=== PATIENT | male | born 1940 | race Caucasian/White ===

== ENCOUNTER 2021-06-18 14:08 | Emergency (ER) | payer MEDICARE, BC ==
[2021-06-18 14:56] LABS: CHLORIDE,CL 98 mEq/L (98-106); SODIUM,NA 133 mEq/L (136-145)
--- NOTE | 2021-06-18 15:00 | EDM.PDOC ---
ED HPI GENERAL MEDICAL PROBLEM - General Chief Complaint: General Stated Complaint: double vision Time Seen by Provider: 06/18/21 14:20 Source of Information: Reports: Patient, Family () History Limitations: Reports: No Limitations - History of Present Illness INITIAL COMMENTS - FREE TEXT/NARRATIVE: States that he is seeing double if he looks at the wall and when they were coming to [place] he would see 2 cars. If he is reading a paper he is able to read it without it being double but sometimes he states that it shifts up and down and then will come back together. He states that the double vision he has when looking at the wall will eventually come back together into 1 vision. He is able to correct the double vision by closing one eye or the other. He has no ptosis and EOM are normal bilaterally. INH stroke score when admitted is 0. Onset: Today Associated Symptoms: Reports: No Other Symptoms. Denies: Headaches Right Wrist Pain Score (Numeric/FACES): 4 - Related Data Allergies Allergy/AdvReac Type Severity Reaction Status Date / Time meloxicam Allergy Shortness Verified 06/21/21 13:16 of Breath tetracycline [Tetracycline] AdvReac Mild Blisters Verified 06/21/21 13:16 Home Meds: Home Meds Ascorbate Calcium [Vitamin C] 500 mg PO DAILY 05/06/17 [History] Cholecalciferol (Vitamin D3) [Vitamin D3] 5,000 unit PO 1200 05/06/17 [History] Magnesium 250 mg PO DAILY 05/06/17 [History] Multivitamin [Multivitamins] 1 each PO DAILY 05/06/17 [History] Pregabalin [Lyrica] 75 mg PO TID 05/06/17 [History] Sennosides [Senokot] 25.8 mg PO TID 05/06/17 [History] traMADol [Ultram] 50 mg PO Q8H PRN 05/06/17 [History] Losartan/Hydrochlorothiazide [Losartan-HCTZ 100-25 MG] 100 mg PO DAILY 05/15/18 [History] Diclofenac Sodium [Voltaren] 1 applic TOP ASDIRECTED PRN 06/26/18 [History] predniSONE [Prednisone] 5 mg PO DAILY 05/11/19 [History] Folic Acid 0.4 mg PO DAILY 08/03/19 [History] Calcium Carbonate [Calcium] 600 mg PO BID 06/12/20 [History] Fluticasone Propionate [Flonase] 2 sprays INH BEDTIME 06/12/20 [History] riTUXimab [Rituxan] 1 infusion IV Q6M 06/18/21 [History] Aspirin 81 mg PO DAILY 06/21/21 [History] Rosuvastatin [Crestor] 10 mg PO DAILY 06/21/21 [History] Past Medical History - History Comment History Comment: please see RN notes for past medical, surgical, family history Social & Family History - Tobacco Use Tobacco Use Status *Q: Former Tobacco User Used Tobacco, but Quit: Yes Month/Year Tobacco Last Used: 41 y.o - Caffeine Use Caffeine Use: Reports: Coffee - Recreational Drug Use Recreational Drug Use: No - Living Situation & Occupation Living situation: Reports: , with Spouse Occupation: Retired ED ROS GENERAL - Review of Systems Review Of Systems: See Below Constitutional: Denies: Fever, Chills HEENT: Reports: Vision Change (sees doubles. ) Respiratory: Reports: No Symptoms Cardiovascular: Reports: No Symptoms GI/Abdominal: Reports: No Symptoms Skin: Reports: No Symptoms Neurological: Denies: Dizziness, Headache, Numbness, Syncope, Trouble Speaking, Difficulty Walking, Weakness, Change in Speech, Gait Disturbance Psychiatric: Reports: No Symptoms ED EXAM, GENERAL - Physical Exam Exam: See Below Exam Limited By: No Limitations General Appearance: Alert, WD/WN, No Apparent Distress, Other (very talkative) Eye Exam: Bilateral Eye: Other Ears: Normal External Exam, Normal Canal Nose: Normal Inspection Throat/Mouth: Normal Inspection, Normal Oropharynx Head: Atraumatic, Normocephalic Neck: Normal Inspection, Supple, Non-Tender, Full Range of Motion. No: Carotid Bruit Respiratory/Chest: No Respiratory Distress, Lungs Clear, Normal Breath Sounds Cardiovascular: Regular Rate, Rhythm, No Edema GI/Abdominal: Normal Bowel Sounds, Soft, Non-Tender Extremities: Normal Inspection, Normal Capillary Refill Neurological: Alert, Oriented, CN II-XII Intact Skin Exam: Warm, Dry Course - Vital Signs Last Recorded V/S: Last Vital Signs Temp 98.1 F 06/18/21 14:08 Pulse 64 06/18/21 14:08 Resp 18 06/18/21 14:08 BP 154/92 H 06/18/21 14:08 Pulse Ox 96 06/18/21 14:08 - Orders/Labs/Meds Labs: Laboratory Tests 06/18/21 06/18/21 06/18/21 Range/Units 14:18 14:43 14:43 WBC 9.0 (4.0-11.0) 10^3/uL RBC 4.74 (4.50-6.00) x10^6/uL Hgb 14.4 (14.0-18.0) g/dL Hct 42.3 (42.0-52.0) % MCV 89.2 (83.0-97.0) fL MCH 30.4 (27.0-32.0) pg MCHC 34.0 (32.0-36.0) g/dL RDW Coeff of Patrick 14.0 (11.0-15.0) % Plt Count 249 (150-400) 10^3/uL Immature Gran % (Auto) 0.8 (0.0-4.9) % Neut % (Auto) 52.5 (41-71) % Lymph % (Auto) 28.7 (24-44) % [place] % (Auto) 16.0 H (0-10) % Eos % (Auto) 1.8 (0-6) % Baso % (Auto) 0.2 (0-1) % Neut # (Auto) 4.72 (1.80-8.00) x10^3/uL Lymph # (Auto) 2.58 (0.60-5.00) 10^3/uL [place] # (Auto) 1.44 (0.00-1.50) 10^3/uL Eos # (Auto) 0.16 (0.00-1.50) 10^3/uL Baso # (Auto) 0.02 (0.00-0.50) 10^3/uL Immature Gran # (Auto) 0.07 (0.00-0.49) 10^3/uL PT 11.0 (9.7-12.3) SEC INR 1.01 (0.92-1.18) Sodium 133 L (136-145) mEq/L Potassium 3.8 (3.5-5.0) mEq/L Chloride 98 (98-106) mEq/L Carbon Dioxide 31 (21-32) mmol/L BUN 16 (7-18) mg/dL Creatinine 0.8 (0.7-1.3) mg/dL Est Cr Clr Drug Dosing 82.18 mL/min Estimated GFR (MDRD) > 60 (>=60) mL/min Glucose 104 H (75-99) mg/dL Calcium 8.2 L (8.4-10.1) mg/dL Lactate Dehydrogenase 233 H (100-190) U/L Creatine Kinase 110 (35-232) U/L Troponin I < 0.017 (0.00-0.06) ng/mL Urine Color (YELLOW) Urine Appearance (CLEAR) Urine pH (4.5-8.0) Ur Specific [place] (1.003-1.020) Urine Protein (NEGATIVE) mg/dL Urine Glucose (UA) (NEGATIVE) mg/dL Urine Ketones (NEGATIVE) mg/dL Urine Occult Blood (NEGATIVE) Urine Nitrite (NEGATIVE) Urine Bilirubin (NEGATIVE) Urine Urobilinogen (0.2-1.0) EU/dL Ur Leukocyte Esterase (NEGATIVE) 06/18/21 Range/Units 14:43 WBC (4.0-11.0) 10^3/uL RBC (4.50-6.00) x10^6/uL Hgb (14.0-18.0) g/dL Hct (42.0-52.0) % MCV (83.0-97.0) fL MCH (27.0-32.0) pg MCHC (32.0-36.0) g/dL RDW Coeff of Patrick (11.0-15.0) % Plt Count (150-400) 10^3/uL Immature Gran % (Auto) (0.0-4.9) % Neut % (Auto) (41-71) % Lymph % (Auto) (24-44) % [place] % (Auto) (0-10) % Eos % (Auto) (0-6) % Baso % (Auto) (0-1) % Neut # (Auto) (1.80-8.00) x10^3/uL Lymph # (Auto) (0.60-5.00) 10^3/uL [place] # (Auto) (0.00-1.50) 10^3/uL Eos # (Auto) (0.00-1.50) 10^3/uL Baso # (Auto) (0.00-0.50) 10^3/uL Immature Gran # (Auto) (0.00-0.49) 10^3/uL PT (9.7-12.3) SEC INR (0.92-1.18) Sodium (136-145) mEq/L Potassium (3.5-5.0) mEq/L Chloride (98-106) mEq/L Carbon Dioxide (21-32) mmol/L BUN (7-18) mg/dL Creatinine (0.7-1.3) mg/dL Est Cr Clr Drug Dosing mL/min Estimated GFR (MDRD) (>=60) mL/min Glucose (75-99) mg/dL Calcium (8.4-10.1) mg/dL Lactate Dehydrogenase (100-190) U/L Creatine Kinase (35-232) U/L Troponin I (0.00-0.06) ng/mL Urine Color Yellow (YELLOW) Urine Appearance Clear (CLEAR) Urine pH 6.0 (4.5-8.0) Ur Specific [place] 1.020 (1.003-1.020) Urine Protein Negative (NEGATIVE) mg/dL Urine Glucose (UA) Negative (NEGATIVE) mg/dL Urine Ketones Negative (NEGATIVE) mg/dL Urine Occult Blood Negative (NEGATIVE) Urine Nitrite Negative (NEGATIVE) Urine Bilirubin Negative (NEGATIVE) Urine Urobilinogen 0.2 (0.2-1.0) EU/dL Ur Leukocyte Esterase Negative (NEGATIVE) - Re-Assessments/Exams Free Text/Narrative Re-Assessment/Exam: 06/18/21 1531 Per one call I Discussed pt and CT report with Dr. Cristobal Little neurologist at [facility] per pt request. He MRI today which we can not do. He then recommended transfer to [facility] to have it accomplished there. I was then transferred to Dr. Howard, ER physician who felt that if there was a concern for a stroke I should talk to the stroke neurologist. about it. I was then transferred to Dr. Andrade the interventional stroke neurologist and he reviewed the CT and recommended that he has MRI tomorrow, see opthamolgist early next week depending on the results of the MRI, start a baby ASA daily and start crestor 10 mg daily. If MRI abnormal then would need to see him also. 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 He should also patch [address] Pt and are both in agreement with the above plan. Instructed that if symptoms change then he needs to return immediately. Departure - Departure Time of Disposition: 16:07 Disposition: Home, Self-Care 01 Condition: Fair Clinical Impression: Diplopia - Discharge Information *PRESCRIPTION DRUG MONITORING PROGRAM REVIEWED*: Not Applicable *COPY OF PRESCRIPTION DRUG MONITORING REPORT IN PATIENT KIMBER: Not Applicable Referrals: Chivo Ramos MD [Primary Care Provider] - Forms: ED Department Discharge Additional Instructions: MRI tomorrow in [place] wear patch on one eye or your glasses to stop the double vision will need to see ophthalmology pending the results of the MRI- This will be arranged after MRI. Do not drive. Start baby ASA 81 mg daily start crestor 10 mg daily for stroke prevention. Sepsis Event Note (ED) - Evaluation Sepsis Screening Result: No Definite Risk - Problem List & Annotations (1) Double vision with both eyes open SNOMED Code(s): 725752691 Code(s): H53.2 - DIPLOPIA Status: Acute Priority: High - Problem List Review Problem List Initiated/Reviewed/Updated: Yes
== END 2021-06-18 16:30 | disposition home or self-care (01) ==
LOC: CC.ED 14:08
DX: H53.2 Diplopia (principal); Z87.891 Personal history of nicotine dependence; Z79.899 Other long term (current) drug therapy; Z79.82 Long term (current) use of aspirin; Z88.1 Allergy status to other antibiotic agents; Z88.6 Allergy status to analgesic agent
CPT/HCPCS: 36415; 70450; 71046; 80048; 81003; 82550; 83615; 84484; 85025; 85610; 93005; 93010; 99284; 99285-25

== ENCOUNTER 2021-06-21 13:11 | Inpatient (IN) | payer MEDICARE, BC ==
[2021-06-21] MEDS ORDERED: Acetaminophen 500 MG Tab PO ONE (13:25)
--- NOTE | 2021-06-21 13:29 | EDM.PDOC ---
ED HPI GENERAL MEDICAL PROBLEM - General Chief Complaint: General Stated Complaint: hands shaking this AM Time Seen by Provider: 06/21/21 13:22 Source of Information: Reports: Patient, Significant Other () History Limitations: Reports: No Limitations - History of Present Illness INITIAL COMMENTS - FREE TEXT/NARRATIVE: This patent is a 80 year old male that presents to the ER. Patient reports that he woke this morning, did not drink coffee like he normally does. He reports he and his went to [facility] to eat lunch. Patient reports that on the way to [facility] he was shaking while driving. He reports that while he was there he was shaking all over. Patient reports that his encouraged him to go to the hospital for his shaking. Patient reports that the regional maintenance manager at [facility] wanted to call an ambulance for him to go to the ER, but patient refused. Patient reports he wanted to drive to [place] to go to the ER. His drove to [place] ER from [place] with patient in passenger seat shaking. Patient reports that his shaking stopped about 20 minutes before arrival. The patient reports that earlier today he was having some right sided c hest pain and shortness of breath. Patient reports that he has had this pain in his chest on and off for 6 months. He reports this chest pain is not new. He reports in the ER he has no chest pain or shortness of breath. He reports nothing makes it worse or better. Patient keeps reporting the shaking is because he did not get his caffeine today. He keeps reporting he is no longer shaking because he got coffee to go from [facility]. The patient and report the patient on had double vision, was seen for this. The report patient was supposed to see neurologist for this double vision, but he ended up getting an MRI yesterday that was normal, so they cancelled neurology appointment. He is now scheduled to see tax services specialist tomorrow for double vision. Patient reports he has not had double vision since , none today. Onset: Today Onset Date: 06/21/21 Onset Time: 11:00 Duration: Hour(s): (2 11/22) Location: Reports: Upper Extremity, Left, Upper Extremity, Right Severity: Mild Improves with: Reports: Other ("shaking gone, because I drank coffee") Worsens with: Reports: None Associated Symptoms: Reports: Chest Pain ("6 months" " on and off"), Shortness of Breath, Other (shakes). Denies: Confusion, Cough, cough w sputum, Diaphoresis, Fever/Chills, Headaches, Loss of Appetite, Malaise, Nausea/Vomiting, Rash, Seizure, Syncope, Weakness - Related Data Allergies Allergy/AdvReac Type Severity Reaction Status Date / Time meloxicam Allergy Shortness Verified 06/21/21 13:16 of Breath tetracycline [Tetracycline] AdvReac Mild Blisters Verified 06/21/21 13:16 Home Meds: Home Meds Ascorbate Calcium [Vitamin C] 500 mg PO DAILY 05/06/17 [History] Cholecalciferol (Vitamin D3) [Vitamin D3] 5,000 unit PO 1200 05/06/17 [History] Magnesium 250 mg PO DAILY 05/06/17 [History] Multivitamin [Multivitamins] 1 each PO DAILY 05/06/17 [History] Pregabalin [Lyrica] 75 mg PO TID 05/06/17 [History] Sennosides [Senokot] 25.8 mg PO TID 05/06/17 [History] traMADol [Ultram] 50 mg PO Q8H PRN 05/06/17 [History] Losartan/Hydrochlorothiazide [Losartan-HCTZ 100-25 MG] 100 mg PO DAILY 05/15/18 [History] Diclofenac Sodium [Voltaren] 1 applic TOP ASDIRECTED PRN 06/26/18 [History] predniSONE [Prednisone] 5 mg PO DAILY 05/11/19 [History] Folic Acid 0.4 mg PO DAILY 08/03/19 [History] Calcium Carbonate [Calcium] 600 mg PO BID 06/12/20 [History] Fluticasone Propionate [Flonase] 2 sprays INH BEDTIME 06/12/20 [History] riTUXimab [Rituxan] 1 infusion IV Q6M 06/18/21 [History] Aspirin 81 mg PO DAILY 06/21/21 [History] Rosuvastatin [Crestor] 10 mg PO DAILY 06/21/21 [History] Past Medical History HEENT History: Reports: Cataract, Glaucoma, Impaired Vision Cardiovascular History: Reports: Hypertension Musculoskeletal History: Reports: Osteoarthritis, RA Endocrine/Metabolic History: Reports: Obesity/BMI 30+ - Past Surgical History HEENT Surgical History: Reports: Adenoidectomy, Cataract Surgery, Tonsillectomy, Other (See Below) Other HEENT Surgeries/Procedures: "put plastic tubes in my eyes for the pressure." GI Surgical History: Reports: Appendectomy, Colonoscopy, Hernia, Abdominal, Hernia, Inguinal, Other (See Below) Other GI Surgeries/Procedures: abdominal mesh Musculoskeletal Surgical History: Reports: Hip Replacement, Shoulder Surgery Social & Family History - Family History Family Medical History: Unobtainable - Tobacco Use Tobacco Use Status *Q: Former Tobacco User Used Tobacco, but Quit: Yes Month/Year Tobacco Last Used: 1979 - Caffeine Use Caffeine Use: Reports: Coffee - Recreational Drug Use Recreational Drug Use: No - Living Situation & Occupation Living situation: Reports: , with Spouse Occupation: Retired ED ROS GENERAL - Review of Systems Review Of Systems: See Below Constitutional: Reports: Other ("shakes") HEENT: Reports: No Symptoms Respiratory: Reports: Shortness of Breath ("for 6 months", not current.) Cardiovascular: Reports: Chest Pain ("for 6 months". not current) Endocrine: Reports: No Symptoms GI/Abdominal: Reports: No Symptoms : Reports: No Symptoms Musculoskeletal: Reports: No Symptoms Skin: Reports: No Symptoms Neurological: Reports: Tremors. Denies: Confusion, Dizziness, Headache, Numbness, Seizure, Syncope, Tingling, Difficulty Walking, Weakness, Change in Speech, Gait Disturbance Psychiatric: Reports: No Symptoms Hematologic/Lymphatic: Reports: No Symptoms Immunologic: Reports: No Symptoms ED EXAM, GENERAL - Physical Exam Exam: See Below Exam Limited By: No Limitations General Appearance: Alert, WD/WN, No Apparent Distress Eye Exam: Bilateral Eye: EOMI, Normal Inspection, PERRL Ears: Normal External Exam, Normal Canal, Hearing Grossly Normal, Normal TMs Ear Exam: Bilateral Ear: Auricle Normal, Canal Normal, TM normal Nose: Normal Inspection, Normal Mucosa, No Blood Throat/Mouth: Normal Inspection, Normal Lips, Normal Teeth (dentures in place), Normal Gums, Normal Oropharynx, Normal Voice, No Airway Compromise Head: Atraumatic, Normocephalic Neck: Normal Inspection, Supple, Non-Tender, Full Range of Motion Respiratory/Chest: No Respiratory Distress, Lungs Clear, Normal Breath Sounds, No Accessory Muscle Use, Chest Non-Tender Cardiovascular: Normal Peripheral Pulses, Regular Rate, Rhythm, No Edema, No Gallop, No JVD, No Murmur, No Rub Peripheral Pulses: 2+: Radial (L), Radial (R), Posterior Tibial (L), Posterior Tibial (R) GI/Abdominal: Soft, Non-Tender Back Exam: Normal Inspection, Full Range of Motion. No: CVA Tenderness (L), CVA Tenderness (R) Extremities: Normal Inspection, Normal Range of Motion, Non-Tender, No Pedal Edema, Normal Capillary Refill Neurological: Alert, Oriented, CN II-XII Intact, Normal Cognition, Normal Gait, No Motor/Sensory Deficits, Other (Patient was fully alert during "shaking" per patient and . No tremors seen on exam. ) Psychiatric: Normal Affect, Normal Mood Skin Exam: Warm, Dry, Normal Color, No Rash, Wound/Incision (small wound right lower extremiety open previously closed wound with surrounding erythema. No drainge. ) Lymphatic: No Adenopathy #1 Interpretation EKG Date: 06/21/21 Time: 13:55 Rhythm: NSR Rate (Beats/Min): 91 P-Wave: Present QRS: Normal ST-T: Normal Comparison: Change From Previous EKG (2 days ago; subtle changes with artifact, but no STEMI.) Course - Vital Signs Last Recorded V/S: Last Vital Signs Temp 100.5 F 06/21/21 15:55 Pulse 80 06/21/21 15:55 Resp 18 06/21/21 15:55 BP 127/81 06/21/21 15:55 Pulse Ox 92 L 06/21/21 15:55 - Orders/Labs/Meds Orders: Active Orders 24 hr Category Date Time Status Chest 2V [CR] Stat Exams 06/21/21 13:23 Taken CULTURE BLOOD [BC] Stat Lab 06/21/21 13:40 Received CULTURE BLOOD [BC] Stat Lab 06/21/21 13:45 Received Blood Culture x2 Reflex Set [OM.PC] Stat Oth 06/21/21 13:22 Ordered Medication Orders Acetaminophen (Acetaminophen 325 Mg Tab) 650 mg PO Q4H PRN PRN Reason: Pain (Mild 1-3)/fever Ascorbic Acid (Ascorbic Acid 500 Mg Tab) 500 mg PO DAILY CHANEL Aspirin (Aspirin 81 Mg Tab.Chew) 81 mg PO DAILY CHANEL Calcium Carbonate/Glycine (Calcium Carbonate 500 Mg Tab.Chew) 500 mg PO BID CHANEL Cholecalciferol (Cholecalciferol (Vitamin D3) 25 Mcg Tab) 125 mcg PO DAILY@1200 [facility] Enoxaparin Sodium (Enoxaparin 40 Mg/0.4 Ml Syringe) 40 mg SUBCUT Q24H [facility] Fluticasone Propionate (Fluticasone Propionate Nasal [place] 16 Gm Bottle) 0 gm NASBOTH BEDTIME [facility] Hydrochlorothiazide (Hydrochlorothiazide 25 Mg Tab) 25 mg PO DAILY [facility] Levofloxacin/Dextrose 500 mg/ (Premix) 100 mls @ 100 mls/hr IV Q24H [facility] Last Admin: 06/21/21 16:49 Dose: 100 mls/hr Documented by: HALI Losartan Potassium (Losartan 100 Mg Tab) 100 mg PO DAILY [facility] Magnesium Oxide (Magnesium Oxide 250 Mg Tab) 250 mg PO DAILY [facility] Morphine Sulfate (Morphine 2 Mg/Ml Syringe) 2 mg IVPUSH Q2H PRN PRN Reason: Pain (severe 7-10) Multivitamins/Minerals/Vitamin C (Multivitamin Tab) 1 tab PO DAILY [facility] Non-Formulary Medication (Diclofenac Sodium [Voltaren]) 1 applic TOP ASDIRECTED PRN PRN Reason: Pain Non-Formulary Medication (Folic Acid [Folic Acid]) 0.4 mg PO DAILY [facility] Ondansetron HCl (Ondansetron 4 Mg/2 Ml Sdv) 4 mg IV Q6H PRN PRN Reason: Nausea/Vomiting Prednisone (Prednisone 5 Mg Tab) 5 mg PO DAILY [facility] Pregabalin (Pregabalin 50 Mg Cap) 50 mg PO TID [facility] Pregabalin (Pregabalin 25 Mg Cap) 25 mg PO TID [facility] Rituximab (Rituximab 500 Mg/50 Ml Sdv) mg IV Q6M [facility] Senna (Sennosides 8.6 Mg Tab) 25.8 mg PO TID [facility] Simvastatin (Simvastatin 40 Mg Tab) 40 mg PO DAILY [facility] Tramadol HCl (Tramadol 50 Mg Tab) 50 mg PO Q8H PRN PRN Reason: Pain Labs: Laboratory Tests 06/21/21 06/21/21 06/21/21 Range/Units 13:24 13:40 13:40 WBC 17.1 H (4.0-11.0) 10^3/uL RBC 5.03 (4.50-6.00) x10^6/uL Hgb 15.1 (14.0-18.0) g/dL Hct 45.3 (42.0-52.0) % MCV 90.1 (83.0-97.0) fL MCH 30.0 (27.0-32.0) pg MCHC 33.3 (32.0-36.0) g/dL RDW Coeff of Patrick 14.1 (11.0-15.0) % Plt Count 270 (150-400) 10^3/uL Immature Gran % (Auto) 0.6 (0.0-4.9) % Neut % (Auto) 72.2 H (41-71) % Lymph % (Auto) 15.2 L (24-44) % [place] % (Auto) 11.1 H (0-10) % Eos % (Auto) 0.6 (0-6) % Baso % (Auto) 0.3 (0-1) % Neut # (Auto) 12.37 H (1.80-8.00) x10^3/uL Lymph # (Auto) 2.60 (0.60-5.00) 10^3/uL [place] # (Auto) 1.91 H (0.00-1.50) 10^3/uL Eos # (Auto) 0.11 (0.00-1.50) 10^3/uL Baso # (Auto) 0.05 (0.00-0.50) 10^3/uL Immature Gran # (Auto) 0.10 (0.00-0.49) 10^3/uL ESR PT (9.7-12.3) SEC INR (0.92-1.18) Sodium 136 (136-145) mEq/L Potassium 4.4 (3.5-5.0) mEq/L Chloride 97 L (98-106) mEq/L Carbon Dioxide 31 (21-32) mmol/L BUN 20 H (7-18) mg/dL Creatinine 0.9 (0.7-1.3) mg/dL Est Cr Clr Drug Dosing 73.05 mL/min Estimated GFR (MDRD) > 60 (>=60) mL/min Glucose 96 (75-99) mg/dL Lactic Acid (0.4-2.0) mmol/L Calcium 8.9 (8.4-10.1) mg/dL Total Bilirubin 0.6 (0.0-1.0) mg/dL AST 26 (15-37) U/L ALT 33 (12-78) U/L Alkaline Phosphatase 48 (46-116) U/L Lactate Dehydrogenase 252 H (100-190) U/L Creatine Kinase 65 (35-232) U/L Troponin I 0.143 H (0.00-0.06) ng/mL C-Reactive Protein 0.9 H (0.2-0.8) mg/dL NT-Pro-B Natriuret Pep 111 (0-1000) pg/mL Total Protein 7.0 (6.4-8.2) g/dL Albumin 3.6 (3.4-5.0) g/dL Urine Color Yellow (YELLOW) Urine Appearance Clear (CLEAR) Urine pH 7.0 (4.5-8.0) Ur Specific [place] 1.025 H (1.003-1.020) Urine Protein Negative (NEGATIVE) mg/dL Urine Glucose (UA) Negative (NEGATIVE) mg/dL Urine Ketones Negative (NEGATIVE) mg/dL Urine Occult Blood Negative (NEGATIVE) Urine Nitrite Negative (NEGATIVE) Urine Bilirubin Negative (NEGATIVE) Urine Urobilinogen 0.2 (0.2-1.0) EU/dL Ur Leukocyte Esterase Negative (NEGATIVE) SARS CoV-2 RNA Rapid MARTHA (NEGATIVE) 06/21/21 06/21/21 06/21/21 Range/Units 13:45 13:45 13:45 WBC (4.0-11.0) 10^3/uL RBC (4.50-6.00) x10^6/uL Hgb (14.0-18.0) g/dL Hct (42.0-52.0) % MCV (83.0-97.0) fL MCH (27.0-32.0) pg MCHC (32.0-36.0) g/dL RDW Coeff of Patrick (11.0-15.0) % Plt Count (150-400) 10^3/uL Immature Gran % (Auto) (0.0-4.9) % Neut % (Auto) (41-71) % Lymph % (Auto) (24-44) % [place] % (Auto) (0-10) % Eos % (Auto) (0-6) % Baso % (Auto) (0-1) % Neut # (Auto) (1.80-8.00) x10^3/uL Lymph # (Auto) (0.60-5.00) 10^3/uL [place] # (Auto) (0.00-1.50) 10^3/uL Eos # (Auto) (0.00-1.50) 10^3/uL Baso # (Auto) (0.00-0.50) 10^3/uL Immature Gran # (Auto) (0.00-0.49) 10^3/uL ESR 10 PT 11.2 (9.7-12.3) SEC INR 1.03 (0.92-1.18) Sodium (136-145) mEq/L Potassium (3.5-5.0) mEq/L Chloride (98-106) mEq/L Carbon Dioxide (21-32) mmol/L BUN (7-18) mg/dL Creatinine (0.7-1.3) mg/dL Est Cr Clr Drug Dosing mL/min Estimated GFR (MDRD) (>=60) mL/min Glucose (75-99) mg/dL Lactic Acid 1.0 (0.4-2.0) mmol/L Calcium (8.4-10.1) mg/dL Total Bilirubin (0.0-1.0) mg/dL AST (15-37) U/L ALT (12-78) U/L Alkaline Phosphatase (46-116) U/L Lactate Dehydrogenase (100-190) U/L Creatine Kinase (35-232) U/L Troponin I (0.00-0.06) ng/mL C-Reactive Protein (0.2-0.8) mg/dL NT-Pro-B Natriuret Pep (0-1000) pg/mL Total Protein (6.4-8.2) g/dL Albumin (3.4-5.0) g/dL Urine Color (YELLOW) Urine Appearance (CLEAR) Urine pH (4.5-8.0) Ur Specific [place] (1.003-1.020) Urine Protein (NEGATIVE) mg/dL Urine Glucose (UA) (NEGATIVE) mg/dL Urine Ketones (NEGATIVE) mg/dL Urine Occult Blood (NEGATIVE) Urine Nitrite (NEGATIVE) Urine Bilirubin (NEGATIVE) Urine Urobilinogen (0.2-1.0) EU/dL Ur Leukocyte Esterase (NEGATIVE) SARS CoV-2 RNA Rapid MARTHA (NEGATIVE) 06/21/21 Range/Units 13:45 WBC (4.0-11.0) 10^3/uL RBC (4.50-6.00) x10^6/uL Hgb (14.0-18.0) g/dL Hct (42.0-52.0) % MCV (83.0-97.0) fL MCH (27.0-32.0) pg MCHC (32.0-36.0) g/dL RDW Coeff of Patrick (11.0-15.0) % Plt Count (150-400) 10^3/uL Immature Gran % (Auto) (0.0-4.9) % Neut % (Auto) (41-71) % Lymph % (Auto) (24-44) % [place] % (Auto) (0-10) % Eos % (Auto) (0-6) % Baso % (Auto) (0-1) % Neut # (Auto) (1.80-8.00) x10^3/uL Lymph # (Auto) (0.60-5.00) 10^3/uL [place] # (Auto) (0.00-1.50) 10^3/uL Eos # (Auto) (0.00-1.50) 10^3/uL Baso # (Auto) (0.00-0.50) 10^3/uL Immature Gran # (Auto) (0.00-0.49) 10^3/uL ESR PT (9.7-12.3) SEC INR (0.92-1.18) Sodium (136-145) mEq/L Potassium (3.5-5.0) mEq/L Chloride (98-106) mEq/L Carbon Dioxide (21-32) mmol/L BUN (7-18) mg/dL Creatinine (0.7-1.3) mg/dL Est Cr Clr Drug Dosing mL/min Estimated GFR (MDRD) (>=60) mL/min Glucose (75-99) mg/dL Lactic Acid (0.4-2.0) mmol/L Calcium (8.4-10.1) mg/dL Total Bilirubin (0.0-1.0) mg/dL AST (15-37) U/L ALT (12-78) U/L Alkaline Phosphatase (46-116) U/L Lactate Dehydrogenase (100-190) U/L Creatine Kinase (35-232) U/L Troponin I (0.00-0.06) ng/mL C-Reactive Protein (0.2-0.8) mg/dL NT-Pro-B Natriuret Pep (0-1000) pg/mL Total Protein (6.4-8.2) g/dL Albumin (3.4-5.0) g/dL Urine Color (YELLOW) Urine Appearance (CLEAR) Urine pH (4.5-8.0) Ur Specific [place] (1.003-1.020) Urine Protein (NEGATIVE) mg/dL Urine Glucose (UA) (NEGATIVE) mg/dL Urine Ketones (NEGATIVE) mg/dL Urine Occult Blood (NEGATIVE) Urine Nitrite (NEGATIVE) Urine Bilirubin (NEGATIVE) Urine Urobilinogen (0.2-1.0) EU/dL Ur Leukocyte Esterase (NEGATIVE) SARS CoV-2 RNA Rapid MARTHA Negative (NEGATIVE) Meds: Medications Generic Name Dose Route Start Last Admin Trade Name Freq PRN Reason Stop Dose Admin Acetaminophen 650 mg 06/21/21 15:55 Acetaminophen 325 Mg Tab PO Q4H PRN Pain (Mild 1-3)/fever Ascorbic Acid 500 mg 06/22/21 08:00 Ascorbic Acid 500 Mg Tab PO DAILY [facility] Aspirin 81 mg 06/22/21 08:00 Aspirin 81 Mg Tab.Chew PO DAILY [facility] Calcium Carbonate/Glycine 500 mg 06/21/21 20:00 Calcium Carbonate 500 Mg Tab.Chew PO BID [facility] Cholecalciferol 125 mcg 06/22/21 12:00 Cholecalciferol (Vitamin D3) 25 Mcg Tab PO DAILY@1200 [facility] Enoxaparin Sodium 40 mg 06/22/21 16:00 Enoxaparin 40 Mg/0.4 Ml Syringe SUBCUT Q24H [facility] Fluticasone Propionate 0 gm 06/21/21 20:00 Fluticasone Propionate Nasal [place] 16 Gm Bottle NASBOTH BEDTIME [facility] Hydrochlorothiazide 25 mg 06/22/21 08:00 Hydrochlorothiazide 25 Mg Tab PO DAILY [facility] Levofloxacin/Dextrose 500 mg/ 100 mls @ 100 mls/hr 06/21/21 16:00 06/21/21 16:49 Premix IV 100 mls/hr Q24H CHANEL Administration Losartan Potassium 100 mg 06/22/21 08:00 Losartan 100 Mg Tab PO DAILY [facility] Magnesium Oxide 250 mg 06/22/21 08:00 Magnesium Oxide 250 Mg Tab PO DAILY [facility] Morphine Sulfate 2 mg 06/21/21 15:55 Morphine 2 Mg/Ml Syringe IVPUSH Q2H PRN Pain (severe 7-10) Multivitamins/Minerals/Vitamin C 1 tab 06/22/21 08:00 Multivitamin Tab PO DAILY [facility] Non-Formulary Medication 1 applic 06/21/21 15:55 Diclofenac Sodium [Voltaren] TOP ASDIRECTED PRN Pain Non-Formulary Medication 0.4 mg 06/22/21 08:00 Folic Acid [Folic Acid] PO DAILY [facility] Ondansetron HCl 4 mg 06/21/21 15:55 Ondansetron 4 Mg/2 Ml Sdv IV Q6H PRN Nausea/Vomiting Prednisone 5 mg 06/22/21 08:00 Prednisone 5 Mg Tab PO DAILY [facility] Pregabalin 50 mg 06/21/21 20:00 Pregabalin 50 Mg Cap PO TID [facility] Pregabalin 25 mg 06/21/21 20:00 Pregabalin 25 Mg Cap PO TID [facility] Rituximab mg 06/21/21 15:55 Rituximab 500 Mg/50 Ml Sdv IV Q6M [facility] Senna 25.8 mg 06/21/21 20:00 Sennosides 8.6 Mg Tab PO TID [facility] Simvastatin 40 mg 06/22/21 08:00 Simvastatin 40 Mg Tab PO DAILY [facility] Tramadol HCl 50 mg 06/21/21 15:55 Tramadol 50 Mg Tab PO Q8H PRN Pain Discontinued Medications Generic Name Dose Route Start Last Admin Trade Name Freq PRN Reason Stop Dose Admin Acetaminophen 1,000 mg 06/21/21 13:25 06/21/21 13:39 Acetaminophen 500 Mg Tab PO 06/21/21 13:26 1,000 mg ONETIME ONE Administration - Radiology Interpretation Free Text/Narrative:: CXR: Persistent mild airspace opacification n bilateral lung bases is favored to represent atelectasis/scarring rather than pneumonia. No new regions of con solidation. No cardiomediastinal silhouette is not enlarged. Pulmonary vasculature is normal. No pleural effusion or pneumothorax. - Re-Assessments/Exams Free Text/Narrative Re-Assessment/Exam: 06/21/21 15:10 Patient has leukocytosis, oxygen saturation 92%, fever, cough, chest pain, shortness of breath. Even though radiologist read CXR as opacification does not look like pneumonia, clinically it fits pneumonia. The patient does have a wound right leg with mild surrounding redness from skin procedure this past week. Will admit and treat as pneumonia. Troponin is just above normal, will repeat in 4 hours. Patient currently denies chest pain. Troponin has been mildly elevated in the past before. Departure - Departure Time of Disposition: 15:13 Disposition: Admitted As Inpatient 67 Condition: Fair Clinical Impression: Pneumonia Qualifiers: Pneumonia type: due to unspecified organism Laterality: bilateral Lung location: lower lobe of lung Qualified Code(s): J18.9 - Pneumonia, unspecified organism Leukocytosis Qualifiers: Leukocytosis type: other Qualified Code(s): D72.828 - Other elevated white blood cell count Chest pain Qualifiers: Chest pain type: other chest pain Qualified Code(s): R07.89 - Other chest pain Cellulitis Qualifiers: Site of cellulitis: extremity Site of cellulitis of extremity: lower extremity Laterality: right Qualified Code(s): L03.115 - Cellulitis of right lower limb - Discharge Information *PRESCRIPTION DRUG MONITORING PROGRAM REVIEWED*: Not Applicable *COPY OF PRESCRIPTION DRUG MONITORING REPORT IN PATIENT KIMBER: Not Applicable Sepsis Event Note (ED) - Evaluation Sepsis Screening Result: No Definite Risk - Focused Exam Vital Signs: Vital Signs Temp Temp Pulse Resp BP Pulse Ox 06/21/21 14:09 101.4 F H 06/21/21 13:39 102.5 F H 06/21/21 13:12 102.5 F H 87 18 132/82 92 L - My Orders Last 24 Hours: My Active Orders 06/21/21 13:22 Blood Culture x2 Reflex Set [OM.PC] Stat 06/21/21 13:23 Chest 2V [CR] Stat 06/21/21 13:40 CULTURE BLOOD [BC] Stat 06/21/21 13:45 CULTURE BLOOD [BC] Stat - Assessment/Plan Admission H&P: Please use this note as an admission H&P Last 24 Hours: My Active Orders 06/21/21 13:22 Blood Culture x2 Reflex Set [OM.PC] Stat 06/21/21 13:23 Chest 2V [CR] Stat 06/21/21 13:40 CULTURE BLOOD [BC] Stat 06/21/21 13:45 CULTURE BLOOD [BC] Stat Plan: PLEASE SEE RN NOTE FOR PFSH.
[2021-06-21 14:25] LABS: CHLORIDE,CL 97 mEq/L (98-106); SODIUM,NA 136 mEq/L (136-145)
[2021-06-21] MEDS ORDERED: Morphine 2 MG/ML SYRINGE IVPUSH PRN (15:55)
[2021-06-21] MEDS ORDERED: RITUXIMAB 500 MG/50 ML IV SCH (15:55)
[2021-06-21] MEDS ORDERED: DICLOFENAC SODIUM 50 MG TOP PRN (15:55)
[2021-06-21] MEDS ORDERED: traMADol 50 MG Tab PO PRN (15:55)
[2021-06-21] MEDS ORDERED: Ondansetron 4 MG/2 ML SDV IV PRN (15:55)
[2021-06-21] MEDS: Levofloxacin/Dextrose 5%-Water 500 MG in Premix Bag 1 BAG IV SCH (16:49)
[2021-06-21] MEDS: Calcium Carbonate 500 MG Tab.Chew PO SCH (19:56)
[2021-06-21] MEDS: Pregabalin 50 MG Cap PO SCH (19:57)
[2021-06-21] MEDS: Fluticasone Propionate Nasal Spray 16 GM Bottle NASBOTH SCH (19:57)
[2021-06-21] MEDS: Pregabalin 25 MG Cap PO SCH (19:57)
[2021-06-21] MEDS: Sennosides 8.6 MG Tab PO SCH (19:57)
--- NOTE | 2021-06-21 19:57 | PCM.SN.2 ---
- Free Text/Narrative Note: 06/21/211955 Troponin consistent with earlier draw. No changes. Patient denies CP.
[2021-06-21] MEDS: Acetaminophen 325 MG Tab PO PRN (20:06)
[2021-06-21] MEDS ORDERED: traMADol 50 MG Tab PO ONE (20:28)
[2021-06-22] MEDS: Acetaminophen 325 MG Tab PO PRN (05:01)
[2021-06-22] MEDS: traMADol 50 MG Tab PO PRN ×2 (05:01→14:11)
[2021-06-22] MEDS: Sennosides 8.6 MG Tab PO SCH ×3 (07:23→19:03)
[2021-06-22] MEDS: Aspirin 81 MG Tab.Chew PO SCH (07:23)
[2021-06-22] MEDS: Multivitamin Tab PO SCH (07:23)
[2021-06-22] MEDS: Pregabalin 50 MG Cap PO SCH ×3 (07:24→19:04)
[2021-06-22] MEDS: predniSONE 5 MG Tab PO SCH (07:24)
[2021-06-22] MEDS: Losartan 100 MG Tab PO SCH (07:24)
[2021-06-22] MEDS: Calcium Carbonate 500 MG Tab.Chew PO SCH (07:24)
[2021-06-22] MEDS: Hydrochlorothiazide 25 MG Tab PO SCH (07:24)
[2021-06-22] MEDS: Pregabalin 25 MG Cap PO SCH ×3 (07:24→19:03)
[2021-06-22] MEDS: Ascorbic Acid 500 MG Tab PO SCH (07:24)
[2021-06-22 07:28] LABS: CHLORIDE,CL 98 mEq/L (98-106); SODIUM,NA 136 mEq/L (136-145)
[2021-06-22] MEDS ORDERED: Simvastatin 40 MG Tab PO SCH (08:00)
[2021-06-22] MEDS: Folic Acid 1 MG Tab PO SCH (10:36)
[2021-06-22] MEDS ORDERED: Iopamidol 755 Mg/ML 100 ML Bottle IVPUSH ONE (10:40)
[2021-06-22] MEDS ORDERED: Bisacodyl 10 MG Supp RECTAL ONE (10:45)
--- NOTE | 2021-06-22 11:51 | PN ---
DATE: 06/22/2021 S: Mr. Forman is a 80-year-old male admitted for pneumonia yesterday. Clinically, he is feeling much better. Has not spiked any temps since admission. Blood cultures remain pending. He has not had any sputum production. He says he feels fine, still feels a little "tight" across his chest, but for the most part denies any other significant symptoms. His chest x- ray report is reviewed. He has some likely scarring in the bibasilar areas. No gross infiltrates seen by Radiology. O: GENERAL: The patient is pleasant and cooperative. HEENT: Benign. NECK: Neck veins are flat. LUNGS: He has left lower lobe rales. I hear nothing on the right other than clear breath sounds. CARDIAC: Tones are regular. ABDOMEN: Soft. EXTREMITIES: No significant peripheral edema. The excision site in his left calf area opened up after removal of sutures on his own and there is minimal surrounding erythema, certainly no signs of cellulitis. ASSESSMENT: 1. LEFT LOWER LOBE PNEUMONIA. 2. RHEUMATOID ARTHRITIS ON DMARDS. 3. HYPERTENSION, CONTROLLED. 4. HYPERLIPIDEMIA. P: I am going to get a CAT scan of this gentleman's chest as he has had recurrent pneumonia over the last couple of years. I believe this is his 3rd or 4th episode. No other significant changes at this time, waiting on blood cultures, and we will proceed accordingly. KAMERON/MILLIE /[id number]
[2021-06-22] MEDS ORDERED: Cholecalciferol (Vitamin D3) 25 MCG Tab PO SCH (12:00)
[2021-06-22] MEDS: Bacitracin/Neomycin/Polymyxin B Oint 28.4 GM Tube TOP SCH ×2 (14:12→19:04)
[2021-06-22] MEDS ORDERED: Enoxaparin 40 MG/0.4 ML Syringe SUBCUT SCH (16:00)
[2021-06-22] MEDS: Levofloxacin/Dextrose 5%-Water 500 MG in Premix Bag 1 BAG IV SCH (16:44)
[2021-06-22] MEDS: Calcium Carbonate/Vitamin D3 1250 MG-5 MCG Tab PO SCH (19:03)
[2021-06-22] MEDS: traMADol 50 MG Tab PO SCH (19:03)
[2021-06-22] MEDS: Fluticasone Propionate Nasal Spray 16 GM Bottle NASBOTH SCH (19:04)
[2021-06-23] MEDS ORDERED: Pregabalin 50 MG Cap PO SCH (04:00)
[2021-06-23] MEDS ORDERED: SAW PALMETTO 160 MG PO SCH (04:00)
[2021-06-23] MEDS ORDERED: Pregabalin 25 MG Cap PO SCH (04:00)
[2021-06-23] MEDS ORDERED: Docusate Sodium 100 MG Cap PO SCH (04:00)
[2021-06-23] MEDS: traMADol 50 MG Tab PO SCH (04:08)
[2021-06-23 07:17] LABS: CHLORIDE,CL 98 mEq/L (98-106); SODIUM,NA 132 mEq/L (136-145)
[2021-06-23] MEDS: predniSONE 5 MG Tab PO SCH (07:40)
[2021-06-23] MEDS: Losartan 100 MG Tab PO SCH (07:40)
[2021-06-23] MEDS: Hydrochlorothiazide 25 MG Tab PO SCH (07:40)
[2021-06-23] MEDS: Sennosides 8.6 MG Tab PO SCH (07:40)
[2021-06-23] MEDS: Aspirin 81 MG Tab.Chew PO SCH (07:40)
[2021-06-23] MEDS: Multivitamin Tab PO SCH (07:42)
[2021-06-23] MEDS: Ascorbic Acid 500 MG Tab PO SCH (07:42)
[2021-06-23] MEDS: Calcium Carbonate/Vitamin D3 1250 MG-5 MCG Tab PO SCH (07:42)
[2021-06-23] MEDS: Folic Acid 1 MG Tab PO SCH (07:42)
[2021-06-23] MEDS: Bacitracin/Neomycin/Polymyxin B Oint 28.4 GM Tube TOP SCH (07:43)
[2021-06-23] MEDS ORDERED: Levofloxacin/Dextrose 5%-Water 500 MG in Premix Bag 1 BAG IV SCH (11:00)
--- NOTE | 2021-06-23 13:43 | DISCH ---
ADMISSION DIAGNOSES: 1. Pneumonia. 2. Fever related to above. 3. Chest pain. 4. Cellulitis. DISCHARGE DIAGNOSIS: 1. PNEUMONIA RELATED TO BRONCHIECTASIS. 2. SUPERFICIAL WOUND INFECTION, LEFT LOWER EXTREMITY. 3. RHEUMATOID ARTHRITIS. 4. HYPERTENSION. 5. HYPERLIPIDEMIA. HISTORY: The patient is a 80-year-old male with known rheumatoid arthritis on chronic prednisone. He presented with rigors and shaking with a fever of up to 102.5. He was evaluated in our emergency room by Good Garcia. Chest x-ray did not show any overt pneumonia, but some scarring and atelectasis in the bases. The patient is symptomatic with cough, fever, and some anterior chest pain. Good Garcia admitted him for pneumonia and placed him on Levaquin. HOSPITAL COURSE: The patient did well while here. For the most part, he was afebrile since the time of admission. He never had any vital sign irregularities. His sats were maintained in the 92% to 95% on room air during his entire stay. He was given IV Levaquin. His lab work showed an improvement in his white count down from 17,000 to 10,000. His CRP is now under 3 and no other abnormalities have been found. Because he has had 3 or 4 bouts of this in the last couple of years, we did do a CT scan of his chest which did show some bronchiectasis. He is going to have routine followup as an outpatient in that regard. At this time, he looks clinically fine for discharge. He has been up and ambulating, eating well, spiking no temps, and his labs are reassuring. He will go home and finish 7 more days of Levaquin as an outpatient and I will see him back in the next 2 weeks for followup in the clinic. COMPLICATIONS: During his stay were none. CONSULTATIONS: None. DISPOSITION: Discharged home. KAMERON/MILLIE /[id number]
[2021-06-23] MEDS ORDERED: Simvastatin 40 MG Tab PO SCH (20:00)
== END 2021-06-23 11:39 | disposition home or self-care (01) | DRG 191 ==
LOC: CC.ED 13:11 → CC.MS 15:35 → UNDOADMIN 15:35 → CC.MS 15:40
PROVIDERS: ADMIT Nurse Practitioner; ATTEND Family Medicine
DX: J47.0 Bronchiectasis with acute lower respiratory infection (principal); D72.828 Other elevated white blood cell count; R07.89 Other chest pain; L03.115 Cellulitis of right lower limb; H54.7 Unspecified visual loss; T81.49XA Infection following a procedure, other surgical site, initial encounter; J18.9 Pneumonia, unspecified organism; M19.90 Unspecified osteoarthritis, unspecified site; E78.5 Hyperlipidemia, unspecified; I10 Essential (primary) hypertension; Z87.891 Personal history of nicotine dependence; Z88.1 Allergy status to other antibiotic agents; Z88.8 Allergy status to other drugs, medicaments and biological substances; Z79.82 Long term (current) use of aspirin; Z79.52 Long term (current) use of systemic steroids; Z79.899 Other long term (current) drug therapy; M06.9 Rheumatoid arthritis, unspecified; J47.9 Bronchiectasis, uncomplicated; Y83.8 Other surgical procedures as the cause of abnormal reaction of the patient, or of later complication, without mention of misadventure at the time of the procedure; H40.9 Unspecified glaucoma; E66.9 Obesity, unspecified; Z20.822 Contact with and (suspected) exposure to COVID-19; Y92.89 Other specified places as the place of occurrence of the external cause; Z90.49 Acquired absence of other specified parts of digestive tract; Z90.89 Acquired absence of other organs; Z98.42 Cataract extraction status, left eye; Z68.36 Body mass index [BMI] 36.0-36.9, adult; Z98.41 Cataract extraction status, right eye; Z98.890 Other specified postprocedural states; Z87.19 Personal history of other diseases of the digestive system; L08.9 Local infection of the skin and subcutaneous tissue, unspecified
CPT/HCPCS: 36415; 71046; 71260; 80048; 80053; 81003; 82550; 83605; 83615; 83880; 84484; 85025; 85610; 85651; 85652; 86140; 87040; 87804; 93005; 93010; 99285-25; A9270-GY; J1650; J1956; J7512; Q9967; U0002

== ENCOUNTER 2022-03-28 17:31 | Emergency (ER) | payer MEDICARE, BC ==
[2022-03-28] MEDS ORDERED: Sodium Chloride 0.9% 10 ML Syringe FLUSH PRN (17:43)
[2022-03-28] MEDS ORDERED: HYDROmorphone 1 MG/ML Syringe IVPUSH ONE (17:44)
[2022-03-28] MEDS ORDERED: Ondansetron 4 MG/2 ML SDV IVPUSH ONE ×2 (17:48→18:31)
[2022-03-28] MEDS ORDERED: Flumazenil 0.1 MG/ML 5 ML MDV ONE (18:20)
[2022-03-28] MEDS ORDERED: Sodium Chloride 0.9% 1,000 ML ONE (18:23)
[2022-03-28] MEDS ORDERED: Midazolam 1 MG/ML 2 ML SDV IVPUSH ONE ×3 (18:28→19:40)
[2022-03-28] MEDS ORDERED: Midazolam 1 MG/ML 2 ML SDV ONE (18:32)
[2022-03-28] MEDS ORDERED: HYDROmorphone 1 MG/ML Syringe ONE (18:33)
[2022-03-28] MEDS ORDERED: Sodium Chloride 0.9% 1,000 ML IV ONE (19:00)
[2022-03-28] MEDS ORDERED: Sodium Chloride 0.9% 250 ML IV SCH (19:00)
[2022-03-28] MEDS ORDERED: Sodium Chloride 0.9% 1,000 ML IV SCH (19:45)
[2022-03-28] MEDS ORDERED: HYDROmorphone 0.5 MG/0.5 ML Syringe IVPUSH ONE (19:58)
== END 2022-03-28 21:40 ==
LOC: CC.ED 17:31
DX: T84.021A Dislocation of internal left hip prosthesis, initial encounter (principal); J10.1 Influenza due to other identified influenza virus with other respiratory manifestations; I10 Essential (primary) hypertension; E66.9 Obesity, unspecified; Z88.5 Allergy status to narcotic agent; Z88.1 Allergy status to other antibiotic agents; Z20.822 Contact with and (suspected) exposure to COVID-19; Z68.41 Body mass index [BMI] 40.0-44.9, adult
CPT/HCPCS: 27250; 36415; 83605; 85025; 85610; 85651; 86140; 87804; 96374; 96375; 96376; 99285-25; J1170; J2250; J2405; J3360; J7030; U0002

== ENCOUNTER 2023-06-30 08:48 | Emergency (ER) | payer MEDICARE, BC ==
[2023-06-30] MEDS ORDERED: Ondansetron 4 MG/2 ML SDV IVPUSH ONE (09:40)
[2023-06-30] MEDS ORDERED: HYDROmorphone 1 MG/ML Syringe IVPUSH ONE (09:40)
[2023-06-30] MEDS ORDERED: Sodium Chloride 0.9% 1,000 ML IV SCH (09:45)
[2023-06-30] MEDS ORDERED: Sodium Chloride 0.9% 10 ML Syringe FLUSH PRN (10:04)
== END 2023-06-30 10:44 | disposition critical access hospital (66) ==
LOC: CC.ED 08:48
DX: T84.021A Dislocation of internal left hip prosthesis, initial encounter (principal); I10 Essential (primary) hypertension; N40.0 Benign prostatic hyperplasia without lower urinary tract symptoms; E66.9 Obesity, unspecified; Z68.30 Body mass index [BMI] 30.0-30.9, adult; Z88.5 Allergy status to narcotic agent; Z88.1 Allergy status to other antibiotic agents; Z88.8 Allergy status to other drugs, medicaments and biological substances; Z79.899 Other long term (current) drug therapy; Z79.01 Long term (current) use of anticoagulants
CPT/HCPCS: 96374; 96375; 99284; 99285-25; J1170; J2405; J7030

== ENCOUNTER 2024-06-27 13:08 | Inpatient (IN) | payer MEDICARE, BC ==
[2024-06-27] MEDS: Sodium Chloride 0.9% 1,000 ML IV ONE (13:42)
[2024-06-27 13:51] LABS: BASOPHILS ABSOLUTE AUTO 0.03 10^3/uL (0.00-0.50); BASOPHILS PERCENT AUTO 0.2 % (0-1); EOSINOPHILS ABSOLUTE AUTO 0.21 10^3/uL (0.00-1.50); EOSINOPHILS PERCENT AUTO 1.3 % (0-6); HEMOGLOBIN 15.8 g/dL (14.0-18.0); IMMATURE GRAN ABSOLUTE AUTO 0.02 10^3/uL (0.00-0.49); IMMATURE GRAN PERCENT AUTO 0.1 % (0.0-4.9); LYMPHOCYTES ABSOLUTE AUTO 1.97 10^3/uL (0.60-5.00); LYMPHOCYTES PERCENT AUTO 12.3 % (24-44); MEAN CORPUSCULAR HEMOGLOBIN 30.7 pg (27.0-32.0); MEAN CORPUSCULAR HGB CONC 32.2 g/dL (32.0-36.0); MEAN CORPUSCULAR VOLUME 95.1 fL (83.0-97.0); MONOCYTES ABSOLUTE AUTO 1.65 10^3/uL (0.00-1.50); MONOCYTES PERCENT AUTO 10.3 % (0-10); NEUTROPHILS ABSOLUTE AUTO 12.12 x10^3/uL (1.80-8.00); NEUTROPHILS PERCENT AUTO 75.8 % (41-71); PLATELET COUNT,PLT 225 10^3/uL (150-400); RED BLOOD CELL COUNT 5.15 x10^6/uL (4.50-6.00)
[2024-06-27 14:10] LABS: LACTIC ACID 1.9 mmol/L (0.4-2.0)
[2024-06-27 14:15] LABS: ALBUMIN 3.8 g/dL (3.4-5.0); BILIRUBIN TOTAL 0.7 mg/dL (0.0-1.0); C-REACTIVE PROTEIN 0.61 mg/dL (<=0.50); CALCIUM 9.2 mg/dL (8.4-10.1); CREATININE 1.2 mg/dL (0.7-1.3); EST CRCL DRUG DOSING (CG) 56.72 mL/min; MAGNESIUM 1.9 mg/dL (1.8-2.4)
[2024-06-27 14:28] LABS: CORONAVIRUS COVID-19 NAA NEGATIVE (NEGATIVE); INFLUENZA A NAA NEGATIVE (NEGATIVE); INFLUENZA B NAA NEGATIVE (NEGATIVE)
[2024-06-27 14:29] LABS: POTASSIUM,K 4.1 mEq/L (3.5-5.0)
[2024-06-27] MEDS ORDERED: Ondansetron 4 MG Tab.DIS PO PRN (15:04)
[2024-06-27] MEDS ORDERED: Polyethylene Glycol 3350 Powder 17 GM Packet PO PRN (15:04)
[2024-06-27] MEDS ORDERED: Ondansetron 4 MG/2 ML SDV IV PRN (15:04)
[2024-06-27] MEDS ORDERED: Acetaminophen 500 MG Tab PO PRN (15:04)
[2024-06-27] MEDS ORDERED: Docusate Sodium 100 MG Cap PO PRN (15:04)
[2024-06-27] MEDS: Levofloxacin/Dextrose 5%-Water 750 MG in Premix Bag 1 BAG IV SCH (15:39)
[2024-06-27] MEDS: Albuterol/Ipratropium 3.0-0.5 MG/3 ML Neb Soln NEB SCH (15:40)
[2024-06-27] MEDS: Sodium Chloride 0.9% 1,000 ML IV SCH (15:40)
[2024-06-27] MEDS: methylPREDNISolone Sodium Succinate 40 MG/1 ML SDV IVPUSH SCH (16:14)
[2024-06-27] MEDS: Fluticasone NASAL Spray 16 GM Bottle NASBOTH SCH (19:47)
[2024-06-27] MEDS: Cholecalciferol (Vitamin D3) 5,000 UNIT Tab PO SCH (19:48)
[2024-06-27] MEDS: Pregabalin 50 MG Cap PO SCH (19:48)
[2024-06-27] MEDS: Apixaban 5 MG Tab PO SCH (19:48)
[2024-06-27] MEDS: Pregabalin 25 MG Cap PO SCH (19:48)
[2024-06-27] MEDS: Rosuvastatin 10 MG Tab PO SCH (19:48)
[2024-06-27] MEDS: traMADol 50 MG Tab PO PRN (20:05)
[2024-06-28 05:23] LABS: APPEARANCE,URINE CLEAR (CLEAR); BILIRUBIN,URINE NEGATIVE (NEGATIVE); COLOR,URINE DARK YELLOW (YELLOW); GLUCOSE,URINE NEGATIVE (NEGATIVE); KETONES,URINE NEGATIVE (NEGATIVE); LEUKOCYTE ESTERASE,URINE NEGATIVE (NEGATIVE); NITRITE,URINE NEGATIVE (NEGATIVE); OCCULT BLOOD,URINE NEGATIVE (NEGATIVE); PROTEIN,URINE NEGATIVE (NEGATIVE); UROBILINOGEN,URINE 0.2 EU/dL (0.2-1.0)
[2024-06-28 07:07] LABS: BASOPHILS ABSOLUTE AUTO 0.01 10^3/uL (0.00-0.50); BASOPHILS PERCENT AUTO 0.1 % (0-1); HEMATOCRIT 43.7 % (42.0-52.0); IMMATURE GRAN ABSOLUTE AUTO 0.02 10^3/uL (0.00-0.49); IMMATURE GRAN PERCENT AUTO 0.2 % (0.0-4.9); LYMPHOCYTES ABSOLUTE AUTO 1.72 10^3/uL (0.60-5.00); LYMPHOCYTES PERCENT AUTO 15.1 % (24-44); MEAN CORPUSCULAR HEMOGLOBIN 30.4 pg (27.0-32.0); MEAN CORPUSCULAR VOLUME 94.8 fL (83.0-97.0); MONOCYTES ABSOLUTE AUTO 0.64 10^3/uL (0.00-1.50); MONOCYTES PERCENT AUTO 5.6 % (0-10); NEUTROPHILS ABSOLUTE AUTO 8.97 x10^3/uL (1.80-8.00); PLATELET COUNT,PLT 197 10^3/uL (150-400); RED BLOOD CELL COUNT 4.61 x10^6/uL (4.50-6.00); WHITE BLOOD CELL COUNT,WBC 11.4 10^3/uL (4.0-11.0)
[2024-06-28 07:29] LABS: ALBUMIN 3.2 g/dL (3.4-5.0); BILIRUBIN TOTAL 0.5 mg/dL (0.0-1.0); C-REACTIVE PROTEIN 3.49 mg/dL (<=0.50); CALCIUM 8.6 mg/dL (8.4-10.1); CREATININE 0.9 mg/dL (0.7-1.3); EST CRCL DRUG DOSING (CG) 75.63 mL/min; POTASSIUM,K 3.9 mEq/L (3.5-5.0); PROTEIN TOTAL,TP 6.2 g/dL (6.4-8.2)
[2024-06-28] MEDS: Multivitamin Tab PO SCH (08:25)
[2024-06-28] MEDS: Hydrochlorothiazide 25 MG Tab PO SCH (08:25)
[2024-06-28] MEDS: Magnesium Oxide 400 MG Tab PO SCH (08:25)
[2024-06-28] MEDS: Sennosides 8.6 MG Tab PO SCH ×3 (08:25→19:43)
[2024-06-28] MEDS: Losartan 100 MG Tab PO SCH (08:26)
[2024-06-28] MEDS ORDERED: Acetaminophen 500 MG Tab PO SCH (14:00)
[2024-06-28] MEDS: traMADol 50 MG Tab PO SCH ×2 (15:10→19:42)
[2024-06-28] MEDS: Acetaminophen 500 MG Tab PO SCH (15:10)
[2024-06-28] MEDS: Tamsulosin 0.4 MG Cap.ER PO SCH (19:43)
[2024-06-29 07:39] LABS: BASOPHILS ABSOLUTE AUTO 0.02 10^3/uL (0.00-0.50); BASOPHILS PERCENT AUTO 0.1 % (0-1); EOSINOPHILS ABSOLUTE AUTO 0.05 10^3/uL (0.00-1.50); EOSINOPHILS PERCENT AUTO 0.3 % (0-6); HEMATOCRIT 42.8 % (42.0-52.0); HEMOGLOBIN 13.6 g/dL (14.0-18.0); IMMATURE GRAN ABSOLUTE AUTO 0.03 10^3/uL (0.00-0.49); IMMATURE GRAN PERCENT AUTO 0.2 % (0.0-4.9); LYMPHOCYTES ABSOLUTE AUTO 3.62 10^3/uL (0.60-5.00); LYMPHOCYTES PERCENT AUTO 25.1 % (24-44); MEAN CORPUSCULAR HEMOGLOBIN 30.4 pg (27.0-32.0); MEAN CORPUSCULAR HGB CONC 31.8 g/dL (32.0-36.0); MEAN CORPUSCULAR VOLUME 95.5 fL (83.0-97.0); MONOCYTES ABSOLUTE AUTO 1.15 10^3/uL (0.00-1.50); NEUTROPHILS ABSOLUTE AUTO 9.57 x10^3/uL (1.80-8.00); NEUTROPHILS PERCENT AUTO 66.3 % (41-71); PLATELET COUNT,PLT 214 10^3/uL (150-400); RED BLOOD CELL COUNT 4.48 x10^6/uL (4.50-6.00); WHITE BLOOD CELL COUNT,WBC 14.4 10^3/uL (4.0-11.0)
[2024-06-29 07:53] LABS: ALBUMIN 3.3 g/dL (3.4-5.0); BILIRUBIN TOTAL 0.5 mg/dL (0.0-1.0); C-REACTIVE PROTEIN 1.94 mg/dL (<=0.50); CALCIUM 8.5 mg/dL (8.4-10.1); CREATININE 0.9 mg/dL (0.7-1.3); EST CRCL DRUG DOSING (CG) 75.63 mL/min; POTASSIUM,K 3.8 mEq/L (3.5-5.0); PROTEIN TOTAL,TP 6.1 g/dL (6.4-8.2)
[2024-06-30 07:23] LABS: BASOPHILS ABSOLUTE AUTO 0.01 10^3/uL (0.00-0.50); BASOPHILS PERCENT AUTO 0.1 % (0-1); EOSINOPHILS ABSOLUTE AUTO 0.04 10^3/uL (0.00-1.50); EOSINOPHILS PERCENT AUTO 0.3 % (0-6); HEMATOCRIT 41.6 % (42.0-52.0); HEMOGLOBIN 13.4 g/dL (14.0-18.0); IMMATURE GRAN ABSOLUTE AUTO 0.03 10^3/uL (0.00-0.49); IMMATURE GRAN PERCENT AUTO 0.2 % (0.0-4.9); LYMPHOCYTES ABSOLUTE AUTO 3.04 10^3/uL (0.60-5.00); LYMPHOCYTES PERCENT AUTO 24.6 % (24-44); MEAN CORPUSCULAR HGB CONC 32.2 g/dL (32.0-36.0); MEAN CORPUSCULAR VOLUME 96.3 fL (83.0-97.0); MONOCYTES ABSOLUTE AUTO 0.98 10^3/uL (0.00-1.50); MONOCYTES PERCENT AUTO 7.9 % (0-10); NEUTROPHILS ABSOLUTE AUTO 8.27 x10^3/uL (1.80-8.00); NEUTROPHILS PERCENT AUTO 66.9 % (41-71); PLATELET COUNT,PLT 196 10^3/uL (150-400); RED BLOOD CELL COUNT 4.32 x10^6/uL (4.50-6.00); WHITE BLOOD CELL COUNT,WBC 12.4 10^3/uL (4.0-11.0)
[2024-06-30 07:32] LABS: BILIRUBIN TOTAL 0.4 mg/dL (0.0-1.0); C-REACTIVE PROTEIN 0.96 mg/dL (<=0.50); CALCIUM 8.2 mg/dL (8.4-10.1); CREATININE 0.8 mg/dL (0.7-1.3); EST CRCL DRUG DOSING (CG) 85.09 mL/min; POTASSIUM,K 3.8 mEq/L (3.5-5.0); PROTEIN TOTAL,TP 5.8 g/dL (6.4-8.2)
== END 2024-06-30 13:17 | disposition home or self-care (01) | DRG 194 ==
LOC: CC.ED 13:08 → UNDOADMIN 14:47 → CC.MS 14:47
PROVIDERS: ADMIT Nurse Practitioner Family; ATTEND Nurse Practitioner Family
DX: J18.9 Pneumonia, unspecified organism (principal); R50.9 Fever, unspecified; D72.828 Other elevated white blood cell count; D72.829 Elevated white blood cell count, unspecified; M19.90 Unspecified osteoarthritis, unspecified site; I10 Essential (primary) hypertension; N40.0 Benign prostatic hyperplasia without lower urinary tract symptoms; E66.9 Obesity, unspecified; Z88.5 Allergy status to narcotic agent; Z88.1 Allergy status to other antibiotic agents; Z88.8 Allergy status to other drugs, medicaments and biological substances; Z90.89 Acquired absence of other organs; Z96.649 Presence of unspecified artificial hip joint; Z98.890 Other specified postprocedural states; Z79.899 Other long term (current) drug therapy; Z90.49 Acquired absence of other specified parts of digestive tract; Z68.41 Body mass index [BMI] 40.0-44.9, adult
CPT/HCPCS: 0240U; 36415; 71045; 80053; 81003; 83605; 83735; 83880; 84484; 85025; 86140; 87040; 87070; 87205; 93005; 93010; 94640; 97110-GP; 97161-GP; 99223; 99232; 99233; 99239; 99285; A9270-GY; J1956; J2919; J7030; J7620-GY

== ENCOUNTER 2024-07-27 08:20 | Inpatient (IN) | payer MEDICARE, BC ==
[2024-07-27 09:01] LABS: BASOPHILS ABSOLUTE AUTO 0.02 10^3/uL (0.00-0.50); BASOPHILS PERCENT AUTO 0.1 % (0-1); EOSINOPHILS ABSOLUTE AUTO 0.14 10^3/uL (0.00-1.50); HEMATOCRIT 44.7 % (42.0-52.0); HEMOGLOBIN 14.1 g/dL (14.0-18.0); IMMATURE GRAN ABSOLUTE AUTO 0.02 10^3/uL (0.00-0.49); IMMATURE GRAN PERCENT AUTO 0.1 % (0.0-4.9); LYMPHOCYTES PERCENT AUTO 12.4 % (24-44); MEAN CORPUSCULAR HEMOGLOBIN 30.1 pg (27.0-32.0); MEAN CORPUSCULAR HGB CONC 31.5 g/dL (32.0-36.0); MEAN CORPUSCULAR VOLUME 95.3 fL (83.0-97.0); MONOCYTES ABSOLUTE AUTO 1.41 10^3/uL (0.00-1.50); MONOCYTES PERCENT AUTO 10.2 % (0-10); NEUTROPHILS ABSOLUTE AUTO 10.47 x10^3/uL (1.80-8.00); NEUTROPHILS PERCENT AUTO 76.2 % (41-71); PLATELET COUNT,PLT 205 10^3/uL (150-400); RED BLOOD CELL COUNT 4.69 x10^6/uL (4.50-6.00); WHITE BLOOD CELL COUNT,WBC 13.8 10^3/uL (4.0-11.0)
[2024-07-27] MEDS: Acetaminophen 500 MG Tab PO ONE (09:03)
[2024-07-27 09:25] LABS: ALANINE AMINOTRANSFERASE,ALT 24 U/L (12-78); ALBUMIN 3.9 g/dL (3.4-5.0); ALKALINE PHOSPHATASE 40 U/L (46-116); ASPARTATE AMNIOTRANSFERASE,AST 23 U/L (15-37); BILIRUBIN TOTAL 0.8 mg/dL (0.0-1.0); BLOOD UREA NITROGEN,BUN 33 mg/dL (7-18); C-REACTIVE PROTEIN 1.17 mg/dL (<=0.50); CALCIUM 9.1 mg/dL (8.4-10.1); CARBON DIOXIDE,CO2 35 mmol/L (21-32); CHLORIDE,CL 104 mEq/L (98-106); GLUCOSE RANDOM 122 mg/dL (75-99); MAGNESIUM 1.9 mg/dL (1.8-2.4); POTASSIUM,K 4.3 mEq/L (3.5-5.0); PROTEIN TOTAL,TP 6.8 g/dL (6.4-8.2); SODIUM,NA 143 mEq/L (136-145)
[2024-07-27 09:31] LABS: ESTIMATED GFR 75 mL/min (>=60)
[2024-07-27] MEDS: Levofloxacin/Dextrose 5%-Water 750 MG in Premix Bag 1 BAG IV ONE (09:48)
[2024-07-27] MEDS: methylPREDNISolone Sodium Succinate 125 MG/2 ML SDV IVPUSH STA (09:48)
[2024-07-27 09:59] LABS: CORONAVIRUS COVID-19 NAA NEGATIVE (NEGATIVE); INFLUENZA A NAA NEGATIVE (NEGATIVE); INFLUENZA B NAA NEGATIVE (NEGATIVE); RESPIRATORY SYNCYTIAL VIR NAA NEGATIVE (NEGATIVE)
[2024-07-27 10:05] LABS: LACTIC ACID 1.8 mmol/L (0.4-2.0)
[2024-07-27 10:24] LABS: APPEARANCE,URINE CLEAR (CLEAR); COLOR,URINE AMBER (YELLOW); GLUCOSE,URINE NEGATIVE (NEGATIVE); KETONES,URINE TRACE mg/dL (NEGATIVE); LEUKOCYTE ESTERASE,URINE NEGATIVE (NEGATIVE); NITRITE,URINE NEGATIVE (NEGATIVE); OCCULT BLOOD,URINE NEGATIVE (NEGATIVE); PROTEIN,URINE NEGATIVE (NEGATIVE); UROBILINOGEN,URINE 0.2 EU/dL (0.2-1.0)
[2024-07-27 10:27] LABS: BILIRUBIN,URINE SMALL (NEGATIVE)
[2024-07-27] MEDS: Sodium Chloride 0.9% 1,000 ML IV SCH (10:46)
[2024-07-27] MEDS ORDERED: Acetaminophen 325 MG Tab PO PRN (11:07)
[2024-07-27] MEDS ORDERED: Ondansetron 4 MG Tab.DIS PO PRN (11:07)
[2024-07-27] MEDS ORDERED: Ondansetron 4 MG/2 ML SDV IV PRN (11:07)
[2024-07-27] MEDS ORDERED: Albuterol 0.083% 2.5 MG/3 ML Neb Soln NEB PRN (11:07)
[2024-07-27] MEDS: Albuterol/Ipratropium 3.0-0.5 MG/3 ML Neb Soln NEB SCH (11:53)
[2024-07-27] MEDS: traMADol 50 MG Tab PO SCH (15:51)
[2024-07-27] MEDS: Pregabalin 50 MG Cap PO SCH (15:52)
[2024-07-27] MEDS: Pregabalin 25 MG Cap PO SCH (15:52)
[2024-07-27] MEDS: Acetaminophen 500 MG Tab PO SCH (15:54)
[2024-07-27] MEDS: Sennosides 8.6 MG Tab PO SCH ×2 (15:56→19:52)
[2024-07-27] MEDS: Rosuvastatin 10 MG Tab PO SCH (19:51)
[2024-07-27] MEDS: Fluticasone NASAL Spray 16 GM Bottle NASBOTH SCH (19:51)
[2024-07-27] MEDS: Tamsulosin 0.4 MG Cap.ER PO SCH (19:52)
[2024-07-27] MEDS: Apixaban 5 MG Tab PO SCH (19:52)
[2024-07-27] MEDS: Folic Acid 1 MG Tab PO SCH (19:52)
[2024-07-27] MEDS: Cholecalciferol (Vitamin D3) 5,000 UNIT Tab PO SCH (19:52)
[2024-07-28] MEDS: methylPREDNISolone Sodium Succinate 125 MG/2 ML SDV IVPUSH SCH (07:42)
[2024-07-28] MEDS: Levofloxacin/Dextrose 5%-Water 750 MG in Premix Bag 1 BAG IV SCH (07:43)
[2024-07-28] MEDS: Hydrochlorothiazide 25 MG Tab PO SCH (07:45)
[2024-07-28] MEDS: Multivitamin Tab PO SCH (07:46)
[2024-07-28] MEDS: Calcium Carbonate/Vitamin D3 1250 MG-5 MCG Tab PO SCH (07:49)
[2024-07-28] MEDS: Ascorbic Acid 500 MG Tab PO SCH (07:51)
[2024-07-28] MEDS ORDERED: SOD SEL PO SCH (08:00)
[2024-07-28] MEDS ORDERED: BETA PO SCH (08:00)
[2024-07-28] MEDS ORDERED: LYC PO SCH (08:00)
[2024-07-28] MEDS ORDERED: SAW PO SCH (08:00)
[2024-07-28] MEDS ORDERED: [UNRECOGNIZED DRUG - OTHER] PO SCH (08:00)
[2024-07-28] MEDS ORDERED: VIT E PO SCH (08:00)
[2024-07-28] MEDS ORDERED: PYG PO SCH (08:00)
[2024-07-28] MEDS: Losartan 100 MG Tab PO SCH (08:07)
[2024-07-28 08:08] LABS: BASOPHILS ABSOLUTE AUTO 0.01 10^3/uL (0.00-0.50); BASOPHILS PERCENT AUTO 0.1 % (0-1); EOSINOPHILS ABSOLUTE AUTO 0.01 10^3/uL (0.00-1.50); EOSINOPHILS PERCENT AUTO 0.1 % (0-6); HEMATOCRIT 38.9 % (42.0-52.0); HEMOGLOBIN 12.4 g/dL (14.0-18.0); IMMATURE GRAN ABSOLUTE AUTO 0.04 10^3/uL (0.00-0.49); IMMATURE GRAN PERCENT AUTO 0.2 % (0.0-4.9); LYMPHOCYTES ABSOLUTE AUTO 2.48 10^3/uL (0.60-5.00); LYMPHOCYTES PERCENT AUTO 15.2 % (24-44); MEAN CORPUSCULAR HEMOGLOBIN 30.5 pg (27.0-32.0); MEAN CORPUSCULAR HGB CONC 31.9 g/dL (32.0-36.0); MEAN CORPUSCULAR VOLUME 95.8 fL (83.0-97.0); MONOCYTES ABSOLUTE AUTO 1.35 10^3/uL (0.00-1.50); MONOCYTES PERCENT AUTO 8.3 % (0-10); NEUTROPHILS ABSOLUTE AUTO 12.43 x10^3/uL (1.80-8.00); NEUTROPHILS PERCENT AUTO 76.1 % (41-71); PLATELET COUNT,PLT 179 10^3/uL (150-400); RED BLOOD CELL COUNT 4.06 x10^6/uL (4.50-6.00); WHITE BLOOD CELL COUNT,WBC 16.3 10^3/uL (4.0-11.0)
[2024-07-28 08:20] LABS: ALBUMIN 3.1 g/dL (3.4-5.0); BILIRUBIN TOTAL 0.3 mg/dL (0.0-1.0); C-REACTIVE PROTEIN 4.88 mg/dL (<=0.50); CALCIUM 8.1 mg/dL (8.4-10.1); CREATININE 0.8 mg/dL (0.7-1.3); EST CRCL DRUG DOSING (CG) 78.14 mL/min; POTASSIUM,K 4.3 mEq/L (3.5-5.0); PROTEIN TOTAL,TP 5.7 g/dL (6.4-8.2)
[2024-07-28] MEDS: Magnesium Oxide 400 MG Tab PO SCH (12:37)
[2024-07-29 08:06] LABS: BASOPHILS ABSOLUTE AUTO 0.01 10^3/uL (0.00-0.50); BASOPHILS PERCENT AUTO 0.1 % (0-1); EOSINOPHILS ABSOLUTE AUTO 0.03 10^3/uL (0.00-1.50); EOSINOPHILS PERCENT AUTO 0.2 % (0-6); HEMATOCRIT 38.7 % (42.0-52.0); HEMOGLOBIN 12.2 g/dL (14.0-18.0); IMMATURE GRAN ABSOLUTE AUTO 0.03 10^3/uL (0.00-0.49); IMMATURE GRAN PERCENT AUTO 0.2 % (0.0-4.9); LYMPHOCYTES ABSOLUTE AUTO 3.17 10^3/uL (0.60-5.00); LYMPHOCYTES PERCENT AUTO 23.2 % (24-44); MEAN CORPUSCULAR HEMOGLOBIN 30.3 pg (27.0-32.0); MEAN CORPUSCULAR HGB CONC 31.5 g/dL (32.0-36.0); MEAN CORPUSCULAR VOLUME 96.3 fL (83.0-97.0); MONOCYTES ABSOLUTE AUTO 1.08 10^3/uL (0.00-1.50); MONOCYTES PERCENT AUTO 7.9 % (0-10); NEUTROPHILS ABSOLUTE AUTO 9.37 x10^3/uL (1.80-8.00); NEUTROPHILS PERCENT AUTO 68.4 % (41-71); PLATELET COUNT,PLT 183 10^3/uL (150-400); RED BLOOD CELL COUNT 4.02 x10^6/uL (4.50-6.00); WHITE BLOOD CELL COUNT,WBC 13.7 10^3/uL (4.0-11.0)
[2024-07-29 08:15] LABS: ALBUMIN 3.2 g/dL (3.4-5.0); BILIRUBIN TOTAL 0.4 mg/dL (0.0-1.0); C-REACTIVE PROTEIN 2.54 mg/dL (<=0.50); CALCIUM 8.5 mg/dL (8.4-10.1); CREATININE 0.8 mg/dL (0.7-1.3); EST CRCL DRUG DOSING (CG) 78.14 mL/min; POTASSIUM,K 3.9 mEq/L (3.5-5.0); PROTEIN TOTAL,TP 5.7 g/dL (6.4-8.2)
[2024-07-29] MEDS: Benzonatate 100 MG Cap PO PRN (23:29)
[2024-07-30 07:23] LABS: BASOPHILS ABSOLUTE AUTO 0.02 10^3/uL (0.00-0.50); BASOPHILS PERCENT AUTO 0.2 % (0-1); EOSINOPHILS ABSOLUTE AUTO 0.04 10^3/uL (0.00-1.50); EOSINOPHILS PERCENT AUTO 0.3 % (0-6); HEMOGLOBIN 12.4 g/dL (14.0-18.0); IMMATURE GRAN ABSOLUTE AUTO 0.06 10^3/uL (0.00-0.49); IMMATURE GRAN PERCENT AUTO 0.5 % (0.0-4.9); LYMPHOCYTES ABSOLUTE AUTO 3.09 10^3/uL (0.60-5.00); LYMPHOCYTES PERCENT AUTO 24.3 % (24-44); MEAN CORPUSCULAR HEMOGLOBIN 30.6 pg (27.0-32.0); MEAN CORPUSCULAR HGB CONC 31.8 g/dL (32.0-36.0); MEAN CORPUSCULAR VOLUME 96.3 fL (83.0-97.0); MONOCYTES ABSOLUTE AUTO 1.15 10^3/uL (0.00-1.50); NEUTROPHILS ABSOLUTE AUTO 8.35 x10^3/uL (1.80-8.00); NEUTROPHILS PERCENT AUTO 65.7 % (41-71); PLATELET COUNT,PLT 196 10^3/uL (150-400); RED BLOOD CELL COUNT 4.05 x10^6/uL (4.50-6.00); WHITE BLOOD CELL COUNT,WBC 12.7 10^3/uL (4.0-11.0)
[2024-07-30 08:00] LABS: ALBUMIN 3.2 g/dL (3.4-5.0); BILIRUBIN TOTAL 0.3 mg/dL (0.0-1.0); C-REACTIVE PROTEIN 1.44 mg/dL (<=0.50); CALCIUM 8.7 mg/dL (8.4-10.1); CREATININE 0.8 mg/dL (0.7-1.3); EST CRCL DRUG DOSING (CG) 78.14 mL/min; POTASSIUM,K 3.9 mEq/L (3.5-5.0); PROTEIN TOTAL,TP 5.8 g/dL (6.4-8.2)
== END 2024-07-30 13:14 | disposition home or self-care (01) | DRG 194 ==
LOC: CC.ED 08:20 → UNDOADMIN 10:09 → CC.MS 10:09
PROVIDERS: ADMIT Nurse Practitioner Family; ATTEND Nurse Practitioner Family
DX: J18.9 Pneumonia, unspecified organism (principal); R50.9 Fever, unspecified; R06.02 Shortness of breath; R53.1 Weakness; Z68.41 Body mass index [BMI] 40.0-44.9, adult; M06.9 Rheumatoid arthritis, unspecified; I10 Essential (primary) hypertension; N40.0 Benign prostatic hyperplasia without lower urinary tract symptoms; M19.90 Unspecified osteoarthritis, unspecified site; E66.9 Obesity, unspecified; H54.7 Unspecified visual loss; Z96.649 Presence of unspecified artificial hip joint; Z99.81 Dependence on supplemental oxygen; Z88.1 Allergy status to other antibiotic agents; Z88.8 Allergy status to other drugs, medicaments and biological substances; Z79.01 Long term (current) use of anticoagulants; Z79.51 Long term (current) use of inhaled steroids; Z79.899 Other long term (current) drug therapy; Z98.41 Cataract extraction status, right eye; Z90.89 Acquired absence of other organs; Z90.49 Acquired absence of other specified parts of digestive tract; Z98.890 Other specified postprocedural states
CPT/HCPCS: 0241U; 36415; 71045; 80053; 81003; 83605; 83735; 83880; 84484; 85025; 85379; 86140; 87040; 87070; 87205; 93005; 93010; 94640; 96365; 96375; 97110-GP; 97161-GP; 99223; 99232; 99233; 99239; 99285-25; A9270-GY; J1956; J2919; J7030; J7620-GY

== ENCOUNTER 2024-10-07 12:12 | Emergency (ER) | payer MEDICARE, BC ==
[2024-10-07 12:36] LABS: BASOPHILS ABSOLUTE AUTO 0.03 10^3/uL (0.00-0.50); BASOPHILS PERCENT AUTO 0.2 % (0-1); EOSINOPHILS ABSOLUTE AUTO 0.18 10^3/uL (0.00-1.50); EOSINOPHILS PERCENT AUTO 1.1 % (0-6); HEMATOCRIT 43.9 % (42.0-52.0); HEMOGLOBIN 13.9 g/dL (14.0-18.0); IMMATURE GRAN ABSOLUTE AUTO 0.05 10^3/uL (0.00-0.49); IMMATURE GRAN PERCENT AUTO 0.3 % (0.0-4.9); LYMPHOCYTES ABSOLUTE AUTO 2.25 10^3/uL (0.60-5.00); LYMPHOCYTES PERCENT AUTO 14.2 % (24-44); MEAN CORPUSCULAR HEMOGLOBIN 30.6 pg (27.0-32.0); MEAN CORPUSCULAR HGB CONC 31.7 g/dL (32.0-36.0); MEAN CORPUSCULAR VOLUME 96.7 fL (83.0-97.0); MONOCYTES ABSOLUTE AUTO 1.54 10^3/uL (0.00-1.50); MONOCYTES PERCENT AUTO 9.7 % (0-10); NEUTROPHILS ABSOLUTE AUTO 11.75 x10^3/uL (1.80-8.00); NEUTROPHILS PERCENT AUTO 74.5 % (41-71); PLATELET COUNT,PLT 159 10^3/uL (150-400); RED BLOOD CELL COUNT 4.54 x10^6/uL (4.50-6.00); WHITE BLOOD CELL COUNT,WBC 15.8 10^3/uL (4.0-11.0)
[2024-10-07 12:49] LABS: ALBUMIN 3.6 g/dL (3.4-5.0); BILIRUBIN TOTAL 0.7 mg/dL (0.0-1.0); C-REACTIVE PROTEIN 0.75 mg/dL (<=0.50); CALCIUM 9.3 mg/dL (8.4-10.1); EST CRCL DRUG DOSING (CG) 62.51 mL/min; MAGNESIUM 1.7 mg/dL (1.8-2.4); POTASSIUM,K 3.8 mEq/L (3.5-5.0); PROTEIN TOTAL,TP 6.5 g/dL (6.4-8.2)
[2024-10-07] MEDS: Doxycycline Monohydrate 100 MG Cap PO ONE (13:06)
== END 2024-10-07 13:22 | disposition home or self-care (01) ==
LOC: CC.ED 12:12
DX: R05.2 Subacute cough (principal); I10 Essential (primary) hypertension; E66.9 Obesity, unspecified; Z68.45 Body mass index [BMI] 70 or greater, adult; Z88.8 Allergy status to other drugs, medicaments and biological substances; Z88.5 Allergy status to narcotic agent; Z88.1 Allergy status to other antibiotic agents; Z79.899 Other long term (current) drug therapy
CPT/HCPCS: 36415; 71046; 80053; 83735; 85025; 86140; 87428-QW; 99283; A9270-GY